=== PATIENT | female | born 1995 | race Caucasian/White ===

== ENCOUNTER 2022-02-22 17:53 | Inpatient (IN) ==
[~2022-02-22 17:53] MED LIST: *HR* Nalbuphine 10 MG/ML AMPUL IV PRN; Azithromycin 500 MG in 0.9 % Sodium Chloride 250 ML IVPB PRN; Famotidine 20 MG/2 ML VIAL IVP PRN; Metoclopramide 10 MG/2 ML VIAL IVP PRN; Naloxone 0.4 MG/ML INJ IVP PRN; Ondansetron 4 MG/2 ML VIAL IVP PRN
[2022-02-22] MEDS ORDERED: Ringers Solution, Lactated 1,000 ML IVC SCH (18:00)
[2022-02-22 19:07] LABS: Basophils % 0.3 %; Eosinophils # 0.1 K/mcL (0.0-0.6); Eosinophils % 0.5 %; Hematocrit 33.6 % (35.3-44.9); Hemoglobin 11.1 g/dL (11.5-15.4); Immature Granulocytes % 1.4 % (0-4); Lymphocytes # 1.7 K/mcL (0.6-4.6); Lymphocytes % 16.9 %; Mean Corpuscular Hemoglobin 27.1 pg (28.0-33.3); Mean Corpuscular Volume 82.2 fL (83.0-100.0); Mean Platelet Volume 11.3 fL (9.4-12.4); Monocytes # 0.5 K/mcL (0.0-1.3); Monocytes % 4.6 %; Neutrophils # 7.9 K/mcL (1.6-8.9); Platelet Count 129 K/mcL (140-400); Red Blood Count 4.09 M/mcL (3.82-4.97); Red Cell Distribution Width 11.9 % (11.5-14.5); Segmented Neutrophils % 76.3 %; White Blood Count 10.3 K/mcL (4.3-11.1)
[2022-02-22 19:16] LABS: Amphetamine Screen,Urine Negative ng/mL (Cutoff=1000); Barbiturate Screen,Urine Negative ng/mL (Cutoff=200); Benzodiazepines Screen,Urine Negative ng/mL (Cutoff=200); Cannabinoid Screen,Urine Negative ng/mL (Cutoff = 50); Cocaine Screen,Urine Negative ng/mL (Cutoff= 300); Opiate Screen,Urine Negative ng/mL (Cutoff=300); Phencyclidine Screen,Urine Negative ng/mL (Cutoff=25)
[2022-02-22 20:20] LABS: Influenza A PCR Negative (Negative); Influenza B PCR Negative (Negative); Resp. Syncytial Virus PCR Negative (Negative)
[2022-02-22 20:21] LABS: SARS-CoV-2 by PCR (In House) Negative (Negative)
[2022-02-22] MEDS ORDERED: Oxytocin 30 UNIT/503 ML BAG IVC ONE (20:33)
[2022-02-22] MEDS ORDERED: Ibuprofen 600 MG TABLET PO ONE (22:03)
[2022-02-23] MEDS ORDERED: Benzocaine/Menthol 56 GM AEROSOL SPRAY TP PRN (00:53)
[2022-02-23] MEDS ORDERED: Ondansetron ODT 4 MG TAB.RAPDIS SL PRN (00:53)
[2022-02-23] MEDS ORDERED: Oxytocin 30 UNIT/503 ML BAG IVC SCH (00:53)
[2022-02-23] MEDS ORDERED: Measles/Mumps/Rubella Vacc 0.5 ML VIAL SQ PRN (00:53)
[2022-02-23] MEDS ORDERED: Lanolin 7 G OINT...G. TP PRN (00:53)
[2022-02-23] MEDS: Acetaminophen 325 MG TABLET PO SCH ×2 (01:05→08:37)
[2022-02-23] MEDS ORDERED: Ibuprofen 600 MG TABLET PO SCH (01:09)
[2022-02-23 01:24] VITALS: O2SAT 97
[2022-02-23 07:57] VITALS: BP 110/70; PULSE 66; TEMP 98.1
[2022-02-23] MEDS ORDERED: Prenatal Vit/FA 1 EACH TABLET PO SCH (09:00)
== END 2022-02-23 12:06 | disposition home or self-care (01) | DRG 560 ==
LOC: 1NENULAB → 1NENUOBS 02-23 02:10
PROVIDERS: ADMIT Registered Nurse; ATTEND Registered Nurse

== ENCOUNTER 2022-03-16 12:54 | Observation (INO) ==
[~2022-03-16 12:54] MED LIST changes: -*HR* Nalbuphine 10 MG/ML AMPUL IV PRN; -Azithromycin 500 MG in 0.9 % Sodium Chloride 250 ML IVPB PRN; +Clindamycin 900 MG/50 ML 900 MG/50 ML IV.SOLN IVPB ONE; -Famotidine 20 MG/2 ML VIAL IVP PRN; -Metoclopramide 10 MG/2 ML VIAL IVP PRN; -Naloxone 0.4 MG/ML INJ IVP PRN; -Ondansetron 4 MG/2 ML VIAL IVP PRN
[2022-03-16] MEDS ORDERED: Ringers Solution, Lactated 1,000 ML IVC SCH ×2 (13:00→14:45)
[2022-03-16] MEDS ORDERED: *HR* Succinylcholine 200 MG/10 ML VIAL IVP ONE (13:20)
[2022-03-16] MEDS ORDERED: Ondansetron 4 MG/2 ML VIAL ONE (13:23)
[2022-03-16] MEDS ORDERED: Lidocaine -MPF 2% 5 ML VIAL ONE (13:23)
[2022-03-16] MEDS ORDERED: *HR* Propofol 200 MG/20 ML VIAL IVP ONE (13:26)
[2022-03-16] MEDS ORDERED: *HR* FentaNYL (PF) 100 MCG/2 ML VIAL ONE (13:26)
[2022-03-16] MEDS ORDERED: *HR* Midazolam HCl 2 MG/2 ML VIAL ONE (13:26)
[2022-03-16] MEDS ORDERED: Ondansetron 4 MG/2 ML VIAL IVP PRN ×2 (13:44→17:53)
[2022-03-16] MEDS ORDERED: *HR* HYDROmorphone PF 0.5 MG/0.5 ML SYRINGE IVP PRN (13:44)
[2022-03-16] MEDS ORDERED: *HR* OxyCODONE Immed Rel 5 MG TABLET PO PRN (13:44)
[2022-03-16 14:06] LABS: White Blood Count 7.7 K/mcL (4.3-11.1)
[2022-03-16 14:07] LABS: Basophils % 0.3 %; Eosinophils # 0.1 K/mcL (0.0-0.6); Eosinophils % 0.8 %; Hematocrit 26.7 % (35.3-44.9); Hemoglobin 8.5 g/dL (11.5-15.4); Immature Granulocytes % 0.4 % (0-4); Lymphocytes # 2.1 K/mcL (0.6-4.6); Lymphocytes % 27.6 %; Mean Corpuscular HGB Conc 31.8 g/dL (31.6-35.5); Mean Corpuscular Hemoglobin 26.8 pg (28.0-33.3); Mean Corpuscular Volume 84.2 fL (83.0-100.0); Mean Platelet Volume 10.3 fL (9.4-12.4); Monocytes # 0.3 K/mcL (0.0-1.3); Monocytes % 4.2 %; Neutrophils # 5.1 K/mcL (1.6-8.9); Platelet Count 274 K/mcL (140-400); Red Blood Count 3.17 M/mcL (3.82-4.97); Red Cell Distribution Width 13.3 % (11.5-14.5); Segmented Neutrophils % 66.7 %
[2022-03-16] MEDS ORDERED: Clindamycin 900 MG/50 ML 900 MG/50 ML IV.SOLN IVPB ONE (14:14)
[2022-03-16] MEDS ORDERED: Ibuprofen 800 MG TABLET PO PRN (14:47)
[2022-03-16] MEDS ORDERED: Ibuprofen 400 MG TABLET PO PRN (17:15)
[2022-03-16] MEDS ORDERED: miSOPROStoL 100 MCG TABLET PO STA (17:51)
[2022-03-16 18:03] LABS: Hematocrit 20.5 % (35.3-44.9)
[2022-03-16 18:06] LABS: Hemoglobin 6.4 g/dL (11.5-15.4)
[2022-03-16] MEDS: *HR* HYDROcodone/Acet 5/325 mg TABLET PO PRN (18:14)
[2022-03-16] MEDS ORDERED: 0.9 % Sodium Chloride 1,000 ML IV ONE ×2 (18:33)
[2022-03-17] MEDS ORDERED: *HR* LORazepam 2 MG/ML VIAL IVP ONE (00:22)
[2022-03-17] MEDS ORDERED: 0.9 % Sodium Chloride 500 ML ONE (00:52)
[2022-03-17] MEDS: *HR* HYDROcodone/Acet 5/325 mg TABLET PO PRN (00:53)
[2022-03-17 06:03] LABS: Basophils % 0.1 %; Eosinophils % 0.1 %; Hematocrit 27.6 % (35.3-44.9); Hemoglobin 8.8 g/dL (11.5-15.4); Immature Granulocytes % 0.4 % (0-4); Lymphocytes # 1.2 K/mcL (0.6-4.6); Lymphocytes % 16.9 %; Mean Corpuscular HGB Conc 31.9 g/dL (31.6-35.5); Mean Corpuscular Hemoglobin 27.3 pg (28.0-33.3); Mean Corpuscular Volume 85.7 fL (83.0-100.0); Mean Platelet Volume 10.2 fL (9.4-12.4); Monocytes # 0.4 K/mcL (0.0-1.3); Monocytes % 5.4 %; Neutrophils # 5.4 K/mcL (1.6-8.9); Platelet Count 186 K/mcL (140-400); Red Blood Count 3.22 M/mcL (3.82-4.97); Red Cell Distribution Width 14.1 % (11.5-14.5); Segmented Neutrophils % 77.1 %; White Blood Count 7.1 K/mcL (4.3-11.1)
[2022-03-17 06:52] VITALS: PULSE 76; TEMP 97.8; O2SAT 98
[2022-03-17 07:12] VITALS: BP 94/49
[2022-03-17] MEDS ORDERED: Ringers Solution, Lactated 500 ML IVC ONE (07:13)
[2022-03-17] MEDS ORDERED: Acetaminophen 325 MG TABLET PO PRN (07:58)
== END 2022-03-17 12:05 | disposition home or self-care (01) ==
LOC: SAMDAY 12:54 → 1NENUOBS 12:54
PROVIDERS: ADMIT Obstetrics & Gynecology; ATTEND Obstetrics & Gynecology